=== PATIENT | male | born 1955 | race Two or more races ===

== ENCOUNTER 2016-11-18 11:57 | Emergency (ER) | payer OTHER ==
[2016-11-18 12:50] LABS: % IMMATURE GRANULYOCYTES 0.5 % (0.0-1.1); ABSOLUTE IMMATURE GRANULOCYTES 0.04 10^3/uL (0.00-0.10); ADD DIFF? NO; ADD MORPH? YES; ADD SCAN? NO; ATYPICAL LYMPHOCYTE FLAG 0 (0-99); FRAGMENT RBC FLAG 0 (0-99); HEMATOCRIT 41.6 % (40.0-51.0); LEFT SHIFT FLG 0 (0-99); MEAN CELL VOLUME 87.9 fL (81.5-99.8); PLATELET CLUMPS FLAG 0 (0-99); PLATELET COUNT 186 10^3/uL (150-400); RED BLOOD CELL COUNT 4.73 10^6/uL (4.40-6.38); RED CELL DISTRIBUTION WIDTH 12.2 % (11.5-15.2)
--- NOTE | 2016-11-18 13:11 | CPEKG ---
Heart Rate: 78 RR Interval: 769 P-R Interval: 148 QRSD Interval: 90 QT Interval: 384 QTC Interval: 438 P [place]: 27 QRS [place]: 21 T Wave [place]: 16 EKG Severity - BORDERLINE ECG - EKG Impression: SINUS RHYTHM EKG Impression: BORDERLINE T WAVE ABNORMALITIES Electronically Signed By: Reed Rodriguez 18-Nov-2016 14:54:48
[2016-11-18 13:17] LABS: INR 1.9 (0.83-1.16); PROTIME(PATIENT) 21.4 SEC (12.0-15.0)
[2016-11-18] MEDS ORDERED: IOPAMIDOL (ISOVUE-370) 150 ML BTL IV ONE (13:34)
[2016-11-18] MEDS ORDERED: IOPAMIDOL (ISOVUE 370) 100 ML BTL IV ONE (13:44)
[2016-11-18 14:02] LABS: ALANINE AMINOTRANSFERASE 45 IU/L (21-72); ALBUMIN 3.9 g/dL (3.5-5.0); ALKALINE PHOSPHATASE 79 IU/L (38-126); ANION GAP 11 mEq/L (8-16); ASPARTATE AMINOTRANSFERASE 40 IU/L (17-59); BILIRUBIN,TOTAL 0.7 mg/dL (0.1-1.4); CALCIUM 9.3 mg/dL (8.5-10.4); CARBON DIOXIDE 23 mEq/l (22-31); CHLORIDE 105 mEq/L (97-110); CREATININE 1.1 mg/dL (0.7-1.3); GLOMERULAR FILTRATION RATE > 60; POTASSIUM 4.3 mEq/L (3.5-5.2); SODIUM 139 mEq/L (134-144); TOTAL PROTEIN 7.1 g/dL (6.3-8.2)
[2016-11-18 14:06] LABS: GLUCOSE 94 mg/dL (70-100)
[2016-11-18 14:40] VITALS: PULSE 74
[2016-11-18 14:47] LABS: LIPEMIA HEMOLYSIS FLAG 100 (0-99)
[2016-11-18 14:48] LABS: HEMOGLOBIN 14.7 g/dL (13.7-17.5)
--- NOTE | 2016-11-18 14:59 | UCPHY ---
H & P Patient Type: New Chief Complaint Nursing Narrative: UPPER BACK PAIN FOR 1 WEEK, INCREASED TO CONSTANT PAIN, STATES FEELS SIMILAR TO PULM EMBOLISM, DENIES MISSING COUMADIN DOSES, STATES INCREASED PAIN WITH DEEP BREATHING Time Seen by Provider: 11/18/16 12:48 HPI/ROS: For more than a month status patient has had right-sided back pain thoracic region that worsened significantly over the past week now 7/10 at times and sharp in nature. The symptoms worsened with a deep breath and concerned because they feel similar to symptoms he had with a pulmonary embolism. That is also similar location of the pain he had from his prior PE. He however reports compliance with his Coumadin 7.5 mg daily. His last INR check had a therapeutic INR 3 weeks ago. Other than a deep breath he also reports slight worsening of the pain when he bends forward. He notes no other exacerbating or alleviating factors. ROS: Constitutional: No fevers or chills. HEENT deep: He reports no headache. Pulmonary: No Shortness of breath. No coughing. Cardiovascular: Reports chronic leg pain left side that is unchanged. No new leg swelling. He denies any heart palpitations or lightheadedness. GI: He denies any nausea or vomiting. No belly pain. Skin: No rash noted. 10 point ROS is otherwise negative. Source: Patient Exam Limitations: No limitations - Medical/Surgical History Other PMH: DVT X2, PE X2, BOTULISM WITH PROLONGED HOSPITALIZATION 2002 - Family History Significant Family History: No pertinent family hx - Social History Smoking Status: Never smoked Alcohol Use: Occasionally Drug Use: None - Physical Exam Exam: General Appearance: Alert, no distress. Eyes: Pupils equal and round no pallor or injection. ENT, Mouth: Mucous membranes moist. Respiratory: There are no retractions, lungs are clear to auscultation. Cardiovascular: Regular rate and rhythm. No murmur gallop or rub. No lower extremity swelling. He does have left calf tenderness but states that is chronic. Gastrointestinal: Abdomen is soft and nontender, no masses, bowel sounds normal. Neurological: Alert with no focal deficits Skin: Warm and dry, no rashes. Musculoskeletal: Neck is supple nontender. Back: Patient has right lower rib tenderness at about the 10th rib but states this does not entirely reproduces symptoms. He has increased pain with forward flexion as well. Extremities are symmetrical, full range of motion. Psychiatric: Mood and affect are normal DIFFERENTIAL DIAGNOSIS: After history and physical exam differential diagnosis was considered for pleurisy, musculoskeletal strain, pulmonary embolism, pulmonary lesion, coronary syndrome Constitutional: Initial Vital Signs Temperature (C) 36.9 C 11/18/16 12:24 Heart Rate 81 11/18/16 12:24 Respiratory Rate 20 11/18/16 12:24 Blood Pressure 193/91 H 11/18/16 12:24 O2 Sat (%) 96 11/18/16 12:24 O2 Delivery Mode Room Air Allergies/Adverse Reactions: amoxicillin Allergy (Verified 11/18/16 12:17) Penicillins Allergy (Verified 11/18/16 12:17) Home Medications: Medication Instructions Recorded Coumadin 11/18/16 Medical Decision Making - Diagnostics EKG Interpretation: 12 lead EKG performed shortly after arrival at 1309 reveals sinus rhythm at 78 Intervals: Normal throughout [place]: Normal throughout ST segments borderline flat T-waves in the inferior leads. Otherwise normal. No previous EKG for comparison Overall assessment: Sinus rhythm with borderline T-waves inferiorly Imaging: CT angio chest: Negative for PE or other significant abnormalities per Dr. manish Rivera-radiologist who read the film. ED Course/Re-evaluation: IV, patient remained stable with no further complaints. After workup, normal troponin, CBC, chemistries, therapeutic are near therapeutic INR and negative CT angio chest and not think this patient is having a cardiopulmonary cause of his symptoms-no evidence of pneumonia, pneumothorax, PE or coronary syndrome. I suspect the cause is actually musculoskeletal I counseled regarding this. - Data Points Laboratory Results: Laboratory Results 11/18/16 12:42 11/18/16 12:42 11/18/16 12:42 WBC 7.80 10^3/uL (3.80-9.50) RBC 4.73 10^6/uL (4.40-6.38) Hgb 14.7 g/dL (13.7-17.5) Hct 41.6 % (40.0-51.0) MCV 87.9 fL (81.5-99.8) MCH TNP MCHC TNP RDW 12.2 % (11.5-15.2) Plt Count 186 10^3/uL (150-400) MPV 9.0 fL (8.7-11.7) Neut % (Auto) 48.5 % (39.3-74.2) Lymph % (Auto) 39.0 % (15.0-45.0) [place] % (Auto) 9.1 % (4.5-13.0) Eos % (Auto) 2.3 % (0.6-7.6) Baso % (Auto) 0.6 % (0.3-1.7) Nucleat RBC Rel Count 0.0 % (0.0-0.2) Absolute Neuts (auto) 3.78 10^3/uL (1.70-6.50) Absolute Lymphs (auto) 3.04 H 10^3/uL (1.00-3.00) Absolute Monos (auto) 0.71 10^3/uL (0.30-0.80) Absolute Eos (auto) 0.18 10^3/uL (0.03-0.40) Absolute Basos (auto) 0.05 10^3/uL (0.02-0.10) Absolute Nucleated RBC 0.00 10^3/uL (0-0.01) Immature Gran % 0.5 % (0.0-1.1) Immature Gran # 0.04 10^3/uL (0.00-0.10) Platelet Estimate ADEQUATE (ADEQ) PT 21.4 H SEC (12.0-15.0) INR 1.90 H (0.83-1.16) Sodium 139 mEq/L (134-144) Potassium 4.3 mEq/L (3.5-5.2) Chloride 105 mEq/L (97-110) Carbon Dioxide 23 mEq/l (22-31) Anion Gap 11 mEq/L (8-16) BUN 22 mg/dL (7-23) Creatinine 1.1 mg/dL (0.7-1.3) Estimated GFR > 60 Glucose 94 mg/dL (70-100) Calcium 9.3 mg/dL (8.5-10.4) Total Bilirubin 0.7 mg/dL (0.1-1.4) AST 40 IU/L (17-59) ALT 45 IU/L (21-72) Alkaline Phosphatase 79 IU/L (38-126) Troponin I < 0.012 ng/mL (0-0.034) Total Protein 7.1 g/dL (6.3-8.2) Albumin 3.9 g/dL (3.5-5.0) Departure - Departure Disposition: Home, Routine, Self-Care Clinical Impression: Thoracic back pain Qualifiers: Chronicity: acute Back pain laterality: right Qualifier Code: (M54.6) Pain in thoracic spine Condition: Good Instructions: Thoracic Pain (ED) Additional Instructions: Diagnosis: Thoracic back pain Your CT angiogram of the chest today or rules out pulmonary embolism -no evidence of pulmonary embolism. Plan: Daily stretches for 3-5 minutes on each position that causes the pain. Rest the area ache but not sharp pain Methocarbamol muscle relaxant as needed for pain control Tylenol or Vicodin in addition as needed. Continue your Coumadin. Follow up with primary care physician listed below - call to arrange follow-up appointment Go to the emergency department for any significant worsening despite the treatment plan. - PQRS PQRS Measurement: NA
[2016-11-18 15:10] LABS: PLATELET ESTIMATE ADEQUATE (ADEQ)
--- NOTE | 2016-11-18 15:13 | CT ---
CT Pulmonary Angiogram History: Right-sided pleuritic pain. History of previous pulmonary embolus. On anticoagulation. Nonsm oker with no cancer history. Comparison: None available. Technique: Axial contrast-enhanced images were obtained through the chest following the uneventful in travenous administration of 90 mL Isovue-370. Creatinine is 1.1. Multiplanar reformations were perfo rmed through the pulmonary arteries. Dose reduction techniques were utilized. Findings: Visualization of peripheral segmental and subsegmental vessels is limited by respiratory mo tion and bolus timing. There is no visible pulmonary embolus. There is mild bronchial thickening with basilar scarring/atelectasis.. Heart size is normal. The interventricular septum is normal. Coronary artery atherosclerosis is noted in the LAD. The aorta is normal caliber without dissection. No pathologically enlarged lymph nodes are identified. Contiguous osteophytes in the spine are compat ible with DISH. Cholelithiasis is present without evidence of cholecystitis. Moderate stool is presen t in the colon. Impression: 1. No visible pulmonary embolus. 2. Cholelithiasis without evidence of cholecystitis. 3. Coronary artery atherosclerosis. 4. Constipation. 5. Additional findings as above. Findings discussed with Dr. Reed Rodriguez today at 1507 hours.
[2016-11-18 15:45] VITALS: BP 175/90; RESP 16; TEMP 97.9; O2SAT 94
== END 2016-11-18 15:41 | disposition home or self-care (01) ==
LOC: CED 11:57
DX: M54.6 Pain in thoracic spine (principal); Z86.711 Personal history of pulmonary embolism
CPT/HCPCS: 71275-PO; 80053-PO; 84484-PO; 85025-PO; 85610-PO; G0463-PO; Q9967